=== PATIENT | female | born 1975 | race Caucasian/White ===

== ENCOUNTER 2020-10-12 15:43 | Emergency (ER) | payer SELFPAY ==
[2020-10-12 16:02] VITALS: BMI 25.0
[2020-10-12] MEDS ORDERED: MECLIZINE HCL 25 MG TABLET (FP) PO ONE (16:33)
[2020-10-12] MEDS ORDERED: SODIUM CHLORIDE 0.9% 500 ML INFUS.BAG IV ONE (16:33)
[2020-10-12] MEDS ORDERED: MECLIZINE HCL 25 MG TABLET (FP) ONE (16:43)
[2020-10-12 17:42] LABS: BASO % 1.2 % (0-2.0); EOS % 4.1 % (0-4.5); HEMOGLOBIN 14.1 GM/dl (10.7-15.3); LYMPH % 26.8 % (8-40); MCH 30.1 pg (25.7-33.7); MCHC 33.6 g/dl (32.0-36.0); MEAN CELL VOLUME 89.6 fl (80-96); MEAN PLT VOLUME 9.3 fl (7.5-11.1); MONO % 6.1 % (3.8-10.2); NEUT % 61.8 % (42.8-82.8); PLATELET COUNT 195 10^3/uL (134-434); RBC 4.69 M/mm3 (3.60-5.2); RDW 13.2 % (11.6-15.6); WHITE BLOOD COUNT 9.3 K/mm3 (4.0-10.8)
[2020-10-12 17:49] LABS: ALBUMIN 4.3 g/dl (3.4-5.0); BILIRUBIN,TOTAL 0.5 mg/dl (0.2-1); CALCIUM 9.2 mg/dl (8.5-10); CREATININE 0.7 mg/dl (0.55-1.3); TOT PROT 7.6 g/dl (6.4-8.2)
[2020-10-12 18:25] VITALS: BP 119/73; PULSE 59; TEMP 99.3
[2020-10-12 18:34] LABS: EPITHELIAL CELLS MANY /hpf
== END 2020-10-12 18:36 | disposition home or self-care (01) ==
LOC: FER 15:43
DX: H81.10 Benign paroxysmal vertigo, unspecified ear (principal)
CPT/HCPCS: 36415; 80053; 81003; 81015; 82550; 84484; 85025; 87086; 87186; 93005; 99284-25